=== PATIENT | female | born 1995 | race Caucasian/White ===

== ENCOUNTER 2017-01-12 12:03 | Emergency (ER) | payer OTHER ==
[~2017-01-12] VITALS: Ht 154.9 cm; Wt 59.0 kg
[~2017-01-12 12:03] MED LIST: PRENATAL VITS.
[2017-01-12 12:29] VITALS: BP 107/66
--- NOTE | 2017-01-12 14:45 | NUR ---
PATIENT LEFT WITHOUT BEING SEEN BY DR. TRENT. NO FURTHER CARE PROVIDED FOR PATIENT.
== END 2017-01-12 14:45 | disposition left against medical advice (07) ==
LOC: MED 12:03
DX: R21 Rash and other nonspecific skin eruption (principal); Z53.21 Procedure and treatment not carried out due to patient leaving prior to being seen by health care provider

== ENCOUNTER 2017-01-13 19:28 | Emergency (ER) | payer OTHER ==
[~2017-01-13] VITALS: Ht 177.8 cm; Wt 59.0 kg
[2017-01-13 20:07] VITALS: BP 121/73
--- NOTE | 2017-01-13 20:27 | NUR ---
21Y F BIB SELF C/O RASH X 2 DAYS. PT STATES RASH OCCURRED OUT OF NOWHERE AND IS THROUGHOUT BODY WITH NO RESP DISTRESS . PT DENIES N/V BUT `HAS DIARRHEA X 2 DAYS SAME RASH ; SKIN IS PINK/WARM/DRY; AAOX4 WITH EVEN AND STEADY GAIT; LUNGS CLEAR BL; HR EVEN AND REGULAR; PT DENIES ANY FEVER, CP, SOB, OR COUGH AT THIS TIME; PATIENT STATES PAIN OF 0/10 AT THIS TIME; VSS; PATIENT POSITIONED FOR COMFORT; HOB ELEVATED; BEDRAILS UP X2; BED DOWN. ER MD MADE AWARE OF PT STATUS.
--- NOTE | 2017-01-13 20:27 | NUR ---
PT TAKEN TO BED 5
--- NOTE | 2017-01-13 20:54 | NUR ---
Dr. Beal evaluating patent at bedside.
[2017-01-13] MEDS ORDERED: methylPREDNISolone SS 125 MG in WATER STERILE 2 ML IM ONE (21:05)
[2017-01-13 22:00] VITALS: BP 119/72
--- NOTE | 2017-01-13 22:00 | NUR ---
Patient discharged with v/s stable. Written and verbal after care instructions given and explained. Patient alert, oriented and verbalized understanding of instructions. Ambulatory with steady gait. All questions addressed prior to discharge. ID band removed. Patient advised to follow up with PMD. Rx of PEPCID 20MG, PREDNISONE 50MG, AND BENADRYL 25MG given. Patient educated on indication of medication including possible reaction and side effects. Opportunity to ask questions provided and answered.
== END 2017-01-13 22:00 | disposition home or self-care (01) ==
LOC: MED 19:28
DX: L50.0 Allergic urticaria (principal)
CPT/HCPCS: 96372; 99283; J2930; Q0163

== ENCOUNTER 2018-12-13 05:15 | Emergency (ER) | payer MEDICAID, OTHER ==
[~2018-12-13] VITALS: Ht 154.9 cm; Wt 59.0 kg
[2018-12-13 05:25] VITALS: BP 129/78
[2018-12-13 05:44] LABS: BASOPHILS # (AUTO) 0.1 K/uL (0.00-0.22); BASOPHILS % (AUTO) 0.5 % (0.0-2.0); EOSINOPHILS # (AUTO) 0.3 K/uL (0-0.4); EOSINOPHILS % (AUTO) 3.1 % (0.0-4.0); HEMATOCRIT 39.4 % (36-48); HEMOGLOBIN 12.7 g/dL (12.0-16.0); LYMPHOCYTES # (AUTO) 2.3 K/uL (2.5-16.5); LYMPHOCYTES % (AUTO) 24.4 % (20.5-51.1); MEAN CORPUSCULAR HEMOGLOBIN 27 pg (27-31); MEAN CORPUSCULAR HGB CONC 32 g/dL (33-37); MEAN CORPUSCULAR VOLUME 84.5 fL (80-94); MONOCYTES # (AUTO) 0.8 K/uL (0.8-1.0); MONOCYTES % (AUTO) 8.2 % (1.7-9.3); NEUTROPHILS # (AUTO) 5.9 K/uL (1.8-7.7); NEUTROPHILS % (AUTO) 63.8 % (42.2-75.2); PLATELET COUNT (AUTO) 228 K/uL (140-450); RED BLOOD CELL COUNT(AUTO) 4.66 MIL/uL (4.20-5.40); RED CELL DISTRIBUTION WIDTH 13.3 % (11.6-13.7); WHITE BLOOD COUNT (AUTO) 9.3 K/uL (4.8-10.8)
[2018-12-13 06:45] VITALS: BP 129/78
== END 2018-12-13 06:45 | disposition home or self-care (01) ==
LOC: MED 05:15
DX: O72.1 Other immediate postpartum hemorrhage (principal)
CPT/HCPCS: 36415; 76856; 85025; 99284; Q0092

== ENCOUNTER 2019-12-05 08:55 | Emergency (ER) | payer SELFPAY ==
[~2019-12-05] VITALS: Ht 154.9 cm; Wt 63.5 kg
[2019-12-05 08:57] VITALS: BP 117/59
--- NOTE | 2019-12-05 09:03 | NUR ---
PATIENT AMBULATED TO BED 8.
--- NOTE | 2019-12-05 09:05 | NUR ---
24/F TO ED WITH C/O R EAR PAIN X 4 DAYS. DENIES DISCHARGE/DRIANAGE FROM SITE. DENIES INJURY/TRAUMA. IN BED FOR MSE.
[2019-12-05 09:43] VITALS: BP 119/62
--- NOTE | 2019-12-05 09:44 | NUR ---
Patient discharged with v/s stable. Written and verbal after care instructions given and explained. Patient alert, oriented and verbalized understanding of instructions. Ambulatory with steady gait. All questions addressed prior to discharge. ID band removed. Patient advised to follow up with PMD. Rx of AMOXICLLIN, IBUPROFEN given. Patient educated on indication of medication including possible reaction and side effects. Opportunity to ask questions provided and answered.
== END 2019-12-05 09:44 | disposition home or self-care (01) ==
LOC: MED 08:55
DX: H66.21 Chronic atticoantral suppurative otitis media, right ear (principal); R05 Cough
CPT/HCPCS: 99283